=== PATIENT | male | born 1985 | race Hispanic/Latino ===

== ENCOUNTER 2024-07-08 20:03 | Emergency (ER) | payer OTHER ==
[~2024-07-08] VITALS: Ht 170.2 cm; Wt 72.1 kg
[2024-07-08 20:19] VITALS: PULSE 77; RESP 16; TEMP 98.1
[2024-07-08] MEDS ORDERED: AUGMENTIN 500-1 EACH PO (21:00)
[2024-07-08] MEDS ORDERED: KETOROLAC TROME10 MG PO (21:01)
[2024-07-08] MEDS: LIDOCAINE HCL 1% LOCAL INJ 20 ML VIAL INJ STA (21:14)
[2024-07-08 21:15] VITALS: BP 133/89; PULSE 87; RESP 16; O2SAT 98
== END 2024-07-08 21:18 | disposition home or self-care (01) ==
LOC: ER 20:12
DX: S92.425A Nondisplaced fracture of distal phalanx of left great toe, initial encounter for closed fracture (principal); W22.8XXA Striking against or struck by other objects, initial encounter; Y92.89 Other specified places as the place of occurrence of the external cause
CPT/HCPCS: 11740; 73660; 99283; J2003